=== PATIENT | female | born 1935 | race Caucasian/White ===

== ENCOUNTER → 2016-12-15 | Outpatient (CLI) | payer MEDICARE, OTHER | END | disposition home or self-care (01) | LOC: GMAL 15:06 | PROVIDERS: ATTEND Family Medicine | DX: N39.0 Urinary tract infection, site not specified (principal) ==

== ENCOUNTER → 2017-06-13 | Outpatient (CLI) | payer MEDICARE, OTHER | END | disposition home or self-care (01) | LOC: GMAL 10:13 | PROVIDERS: ATTEND Family Medicine | DX: D51.3 Other dietary vitamin B12 deficiency anemia (principal); R53.82 Chronic fatigue, unspecified; E55.9 Vitamin D deficiency, unspecified ==

== ENCOUNTER → 2017-08-02 | Outpatient (CLI) | payer MEDICARE, OTHER ==
--- NOTE | 2017-08-02 14:16 | US ---
EXAM DESCRIPTION: Carotid Duplex: Ultrasound. CLINICAL HISTORY: BRUIT COMPARISON: None. TECHNIQUE: Transcutaneous scanning utilizing 2-dimensional and Doppler modes to evaluate the bilateral carotid systems and vertebral arteries. Percentage of diameter of stenosis or no stenosis recorded will be based upon NASCET criteria. FINDINGS: Peak systolic/end diastolic (CM-Sec) CCA Right 67/0 Left 62/13. ICA Right proximal 69/18, distal 81/16. Left proximal 54/14, mid 52/14. Vertebral Right 35/6 Left 32/9. ECA (PS Only) Right 168 left 80. ICA/CCA peak systolic ratio: Right 1.2 Left 0.9 ICA/CCA end diastolic ratio: Right n/a Left 1.1 Vertebral arteries: antegrade flow. Comments Comments: Moderate amount of calcified plaque in the bilateral common carotid bulbs and proximal ICAs. Area stenosis in the right CCA bulb is 36%. Diameter stenosis is almost identical. Area stenosis in the proximal right ICA is 46%; diameter stenosis is 69%. Area stenosis in the mid left CCA is 39%; diameter stenosis 34%. Area stenosis in the left CCA bulb is 57%. Diameter stenosis is 71%. Spectral broadening in the left CCA bulb and ICA. Area stenosis in the proximal left ICA is 36%; diameter stenosis 39%. IMPRESSION: 1. Doppler evaluation of the bilateral carotid systems and vertebral arteries shows no hemodynamically significant stenoses. However, two-dimensional evaluation shows possible critical stenosis in the proximal right ICA and in the left CCA bulb. Consider CTA carotid and vertebral arteries due to this discordance. 2. Significant amount of plaque seen in the carotid arteries bilaterally. Bilateral vertebral arteries showed antegrade-cephalad flow. Electronically signed by: Naga Duncan MD 08/02/2017 2:15 PM CDT
== END | disposition home or self-care (01) ==
LOC: US 09:04
PROVIDERS: ATTEND Family Medicine
DX: R09.89 Other specified symptoms and signs involving the circulatory and respiratory systems (principal)

== ENCOUNTER → 2017-08-16 | Outpatient (CLI) | payer MEDICARE, OTHER ==
--- NOTE | 2017-08-16 17:03 | CT ---
EXAM DESCRIPTION: CTA Neck CLINICAL HISTORY: 81 years, Female, CAROTID STENOSIS COMPARISON: None TECHNIQUE: Rapid bolus administration of nonionicIV contrast was performed with thin-section axial scanning of the neck performed in a dynamic fashion. Reconstructed multiplanar and three dimensional MIP and/or VRT images were created on a separate dedicated workstation were reviewed along with the source axial images and stored in the patient's medical record. Stenoses were evaluated using the NASCET criteria. This exam was performed according to our departmental dose-optimization program, which includes automated exposure control, adjustment of the mA and/or kV according to patient size and/or use of iterative reconstruction technique. FINDINGS: Bolus enhanced examination demonstrates good vascular enhancement of the aorta and great vessels and carotid and vertebral systems. Extensive calcific plaque throughout the aorta and neck is evident with no evidence of great vessel stenosis at the origin from the aortic arch. A combination of focal calcific plaque and tortuosity at the origin of the large left vertebral artery creates an estimated 30-40% proximal left vertebral stenosis. Widely patent but smaller caliber nondominant right vertebral artery is noted without significant stenosis. Anterior plating of the vertical spine from C4 through C7 is evident. Moderate to metallic artifact from this cervical spine hardware slightly limits overall image quality. The innominate artery bifurcation is widely patent. Right common carotid artery is medially positioned adjacent to the right edge of the cervical plate with mild calcific plaque in the distal common carotid artery and more significant calcific plaque along the medial wall of the proximal right ICA. Luminal diameter stenosis is estimated at less than 50%. Internal carotid artery then deviates laterally and is widely patent to the intracranial level with extensive ringlike calcification in the right carotid siphon with patency of the anterior middle cerebral arteries. Left common carotid artery demonstrates calcific surface plaque medially proximal to the bifurcation and moderately extensive calcific plaque in the proximal ICA and modest proximal ICA stenosis estimated at approximately 40-50% is present and appears slightly more significant than the opposite right side. Modest stenosis at the origin of the external carotid artery is also present. Intracranially surface calcification through the carotid siphon is present with patency of the supraclinoid internal carotid artery in the middle and anterior cerebral vessels. IMPRESSION: 1. Extensive calcific atherosclerosis involving the aortic arch great vessels and both carotid systems. A hemodynamically significant stenosis of either carotid system is not identified. 2. There is estimated 40-50% stenosis at the origin of each internal carotid artery with slightly more extensive plaque on the left but a high grade or critical stenosis is not identified. Additional milder surface plaquing in each distal common carotid artery is noted. 3. Normal appearance of the origin of the great vessels and a mild stenosis at the origin of the dominant left vertebral artery estimated at less than 40%. 4. Modest bilateral external carotid stenoses at the origin of each vessel. 5. Prior fusion of the cervical spine and anterior plating from C4 through C7. Electronically signed by: Phil Malhotra MD 08/16/2017 5:01 PM CDT
== END | disposition home or self-care (01) ==
LOC: CT 08:30
PROVIDERS: ATTEND Family Medicine
DX: I65.23 Occlusion and stenosis of bilateral carotid arteries (principal)

== ENCOUNTER → 2017-09-12 | Outpatient (CLI) | payer MEDICARE, OTHER | END | disposition home or self-care (01) | LOC: GMAL 10:59 | PROVIDERS: ATTEND Family Medicine | DX: D53.9 Nutritional anemia, unspecified (principal); E55.9 Vitamin D deficiency, unspecified ==

== ENCOUNTER → 2018-03-08 | Outpatient (CLI) | payer MEDICARE, OTHER | LOC: GMAL 14:29 | PROVIDERS: ATTEND Family Medicine | DX: N39.0 Urinary tract infection, site not specified (principal) ==

== ENCOUNTER → 2018-06-18 | Outpatient (CLI) | payer MEDICARE, OTHER | LOC: GMAL 14:24 | PROVIDERS: ATTEND Family Medicine | DX: I50.89 Other heart failure (principal) ==

== ENCOUNTER → 2018-08-20 | Outpatient (CLI) | payer MEDICARE, OTHER | LOC: YCHH 09:45 | PROVIDERS: ATTEND Family Medicine | DX: E11.21 Type 2 diabetes mellitus with diabetic nephropathy (principal); D64.9 Anemia, unspecified; E78.5 Hyperlipidemia, unspecified; I10 Essential (primary) hypertension ==

== ENCOUNTER → 2018-10-05 | Outpatient (CLI) | payer MEDICARE, OTHER | LOC: YCHH 10:52 | PROVIDERS: ATTEND Family Medicine | DX: E11.21 Type 2 diabetes mellitus with diabetic nephropathy (principal); I10 Essential (primary) hypertension ==

== ENCOUNTER → 2019-01-17 | Outpatient (CLI) | payer MEDICARE, OTHER | LOC: YCHH 10:04 | PROVIDERS: ATTEND Family Medicine | DX: E53.8 Deficiency of other specified B group vitamins (principal); E55.9 Vitamin D deficiency, unspecified; E78.5 Hyperlipidemia, unspecified; E11.21 Type 2 diabetes mellitus with diabetic nephropathy; D64.9 Anemia, unspecified ==

== ENCOUNTER → 2019-02-11 | Outpatient (CLI) | payer MEDICARE, OTHER | LOC: GMAL 10:20 | PROVIDERS: ATTEND Family Medicine | DX: E11.21 Type 2 diabetes mellitus with diabetic nephropathy (principal); I10 Essential (primary) hypertension ==

== ENCOUNTER → 2019-04-01 | Outpatient (CLI) | payer MEDICARE, OTHER | LOC: YCHH 12:45 | PROVIDERS: ATTEND Family Medicine | DX: N39.0 Urinary tract infection, site not specified (principal) ==

== ENCOUNTER → 2019-05-13 | Outpatient (CLI) | payer MEDICARE, OTHER | LOC: YCHH 09:49 | PROVIDERS: ATTEND Family Medicine | DX: E11.21 Type 2 diabetes mellitus with diabetic nephropathy (principal); E78.5 Hyperlipidemia, unspecified ==

== ENCOUNTER → 2019-07-11 | Outpatient (CLI) | payer MEDICARE, OTHER | LOC: GMAL 13:10 | PROVIDERS: ATTEND Family Medicine | DX: N39.0 Urinary tract infection, site not specified (principal) ==

== ENCOUNTER → 2019-08-12 | Outpatient (CLI) | payer MEDICARE, OTHER | LOC: YCHH 15:07 | PROVIDERS: ATTEND Family Medicine | DX: N39.0 Urinary tract infection, site not specified (principal) ==

== ENCOUNTER → 2019-09-23 | Outpatient (CLI) | payer MEDICARE, OTHER | LOC: YCHH 09:22 | PROVIDERS: ATTEND Family Medicine | DX: D64.9 Anemia, unspecified (principal); N18.9 Chronic kidney disease, unspecified; E11.21 Type 2 diabetes mellitus with diabetic nephropathy; E78.5 Hyperlipidemia, unspecified ==

== ENCOUNTER → 2020-03-25 | Outpatient (CLI) | payer MEDICARE, OTHER | LOC: YCHH 09:39 | PROVIDERS: ATTEND Family Medicine | DX: N18.9 Chronic kidney disease, unspecified (principal); E78.5 Hyperlipidemia, unspecified; D64.9 Anemia, unspecified; E11.9 Type 2 diabetes mellitus without complications ==

== ENCOUNTER 2020-04-18 18:27 | Emergency (ER) | payer MEDICARE, OTHER ==
[2020-04-18 18:42] VITALS: TEMP 98
--- NOTE | 2020-04-18 18:44 | ED.PDOC ---
History of Present Illness - General Chief Complaint: Trauma Stated Complaint: s/p fall,left hip pain Time Seen by Provider: 04/18/20 18:33 Source: patient, RN notes reviewed, Vital Signs reviewed, EMS notes reviewed Additional Information: This is an 84-year-old female, with no medical, no blood thinners patient presents to the ER with left hip pain after patient slipped from her chair while eating dinner, and hit her left hip. Patient was able to ambulate after the fall denies LOC denies blood thinner denies any head trauma at the moment has no complaints - History of Present Illness Occurred: just prior to arrival Severity: mild Pain Location: none Improving Factors: nothing Worsening Factors: nothing Loss of Consciousness: no loss of consciousness Associated Symptoms (Fall): denies symptoms Allergies/Adverse Reactions: Allergies Nitrofurantoin [From Macrodantin] Allergy (Verified 03/14/19 11:40) Home Medications: Ambulatory Orders Coenzyme Q10 (Ubidecarenone) [Co Q-10] 200 mg PO DAILY 05/28/18 Insulin Glargine [Lantus Solostar] 50 unit SC 1800 05/28/18 Insulin Lispro [Humalog] See Protocol SUBCU 1800 05/28/18 Multiple Vitamins W/ Minerals [Centrum Silver] 1 ea PO DAILY 05/28/18 Simvastatin 40 mg PO BEDTIME 05/28/18 Aspirin [Aspirin Adult Low Dose] 81 mg PO DAILY 03/14/19 Escitalopram Oxalate [Lexapro] 5 mg PO BEDTIME 03/14/19 Insulin Lispro [Humalog] 8 units SUBCU AC 03/14/19 Memantine HCl-Donepezil HCl [Namzaric 28-10 mg] 10 mg PO PRN 03/14/19 Carvedilol [Coreg] 12.5 mg PO BID #20 tab 03/15/19 Ciprofloxacin [Cipro] 500 mg PO BID #14 tab 03/15/19 Losartan Potassium [Cozaar] 100 mg PO DAILY #10 tab 03/15/19 Review of Systems - Review of Systems Constitutional: States: no symptoms reported EENTM: States: no symptoms reported Respiratory: States: no symptoms reported Cardiology: States: no symptoms reported Gastrointestinal/Abdominal: States: no symptoms reported Genitourinary: States: no symptoms reported Skin: States: no symptoms reported Neurological: States: no symptoms reported Endocrine: States: no symptoms reported Hematologic/Lymphatic: States: no symptoms reported Past Medical History (General) - Patient Medical History Hx Seizures: No Hx Stroke: No Hx Asthma: No Hx of COPD: No Hx Congestive Heart Failure: No Hx Pacemaker: No Hx Hypertension: Yes Hx Diabetes: Yes Hx Cancer: No Hx Hepatitis C: No Hx MRSA: No Surgical History: Hysterectomy - Vaccination History Hx Tetanus, Diphtheria Vaccination: Yes Hx Influenza Vaccination: Yes Hx Pneumococcal Vaccination: Yes - Social History Hx Tobacco Use: No Hx Alcohol Use: No Hx Substance Use: No Hx Substance Use Treatment: No Hx Depression: No Hx Physical Abuse: No Hx Emotional Abuse: No - Female History Patient : No Family Medical History - Family History Mother Living Status: Physical Exam - Physical Exam General Appearance: Alert, Well Developed, Well Groomed, Well Hydrated, Well Nourished Head Injury: no evidence of injury Eye Exam: bilateral normal ENT Exam: hearing grossly normal Neck Exam: non-tender Cardiovascular/Respiratory: regular rate, rhythm, no M/R/G, normal peripheral pulses, no JVD Gastrointestinal/Abdominal: normal bowel sounds, non tender, soft, no organomegaly, no pulsatile mass Back Exam: normal inspection, no CVA tenderness, no vertebral tenderness Extremity Exam: no evidence of injury, normal range of motion, non-tender, no pedal edema Neurologic: manager golf II-XII nml as tested, no motor/sensory deficits, alert, normal mood/affect, oriented x 3 Skin Exam: normal color - [place] Coma Score Best Eye Response ([place]iz): (4) open spontaneously Best Verbal Response ([place]): (5) oriented Best Motor Response ([place]): (6) obeys commands Progress - Progress Progress: Trigger finger, presents to the ER after she fell from a chair while having the night she slipped and fell she usually walks with assistance but she was try to walk on her own, did not hit her head initially was complained of left hip pain but when EMS arrived at the scene she was asymptomatic, patient physically did not have any clinical fractures, [place] Coma Scale 15 patient not on blood thinners and no evidence of shortening or adduction on the right lower extremity X-ray did not show evidence of intertrochanteric fracture no femoral neck fracture, and no inferior, or superior pubic rami fracture she will be sent home with assurance 04/18/20 18:59 Departure - Departure Clinical Impression: Hip sprain Qualifiers: Encounter type: initial encounter Laterality: left Qualified Code(s): S73.102A - Unspecified sprain of left hip, initial encounter Fall Qualifiers: Encounter type: initial encounter Qualified Code(s): W19.XXXA - Unspecified fall, initial encounter Disposition: Discharge to Home or Self Care Departure Forms: ED Discharge - Pt. Copy, Patient Portal Self Enrollment Instructions: DI for Trauma, Hip Pain Referrals: Davide Guerrero III, MD [Primary Care Provider] - 1-2 Weeks Home Medications: Ambulatory Orders Coenzyme Q10 (Ubidecarenone) [Co Q-10] 200 mg PO DAILY 05/28/18 Insulin Glargine [Lantus Solostar] 50 unit SC 1800 05/28/18 Insulin Lispro [Humalog] See Protocol SUBCU 1800 05/28/18 Multiple Vitamins W/ Minerals [Centrum Silver] 1 ea PO DAILY 05/28/18 Simvastatin 40 mg PO BEDTIME 05/28/18 Aspirin [Aspirin Adult Low Dose] 81 mg PO DAILY 03/14/19 Escitalopram Oxalate [Lexapro] 5 mg PO BEDTIME 03/14/19 Insulin Lispro [Humalog] 8 units SUBCU AC 03/14/19 Memantine HCl-Donepezil HCl [Namzaric 28-10 mg] 10 mg PO PRN 03/14/19 Carvedilol [Coreg] 12.5 mg PO BID #20 tab 03/15/19 Ciprofloxacin [Cipro] 500 mg PO BID #14 tab 03/15/19 Losartan Potassium [Cozaar] 100 mg PO DAILY #10 tab 03/15/19 Additional Instructions: You may use ice packs and or warm compresses if pain
--- NOTE | 2020-04-18 18:59 | RAD ---
EXAM DESCRIPTION: XRAY Hip,Left 2 Views; 2 views CLINICAL HISTORY: 84 years Female, fall COMPARISON: None. FINDINGS: Negative for acute fracture, dislocation, or radiopaque foreign body. Degenerative change present. IMPRESSION: No acute findings. Electronically signed by: Deonte Lewis MD 04/18/2020 6:58 PM CDT
[2020-04-18 19:13] VITALS: BP 131/55; O2SAT 96
== END 2020-04-18 19:12 | disposition home or self-care (01) ==
LOC: ER 18:27
DX: S73.102A Unspecified sprain of left hip, initial encounter (principal); W08.XXXA Fall from other furniture, initial encounter; Y92.9 Unspecified place or not applicable

== ENCOUNTER → 2020-05-21 | Outpatient (CLI) | payer MEDICARE, OTHER | LOC: YCHH 15:55 | PROVIDERS: ATTEND Family Medicine | DX: N18.9 Chronic kidney disease, unspecified (principal); E11.9 Type 2 diabetes mellitus without complications ==

== ENCOUNTER 2020-07-19 09:58 | Emergency (ER) | payer MEDICARE, OTHER ==
--- NOTE | 2020-07-19 10:19 | ED.PDOC ---
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 Started 4 days ago. Dyspnea with exertion. Also more leg swelling than normal. Patient denies chest pain, dizziness or current shortness of breath. no recent hospitalization, but care take states she does not move a lot. Worsening Factors: rest Allergies/Adverse Reactions: Allergies Nitrofurantoin [From Macrodantin] Allergy (Verified 03/14/19 11:40) Home Medications: Ambulatory Orders Coenzyme Q10 (Ubidecarenone) [Co Q-10] 200 mg PO DAILY 05/28/18 Insulin Glargine [Lantus Solostar] 85 unit SC 1800 05/28/18 Insulin Lispro [Humalog] See Protocol SUBCU 1800 05/28/18 Multiple Vitamins W/ Minerals [Centrum Silver] 1 ea PO DAILY 05/28/18 Simvastatin 40 mg PO BEDTIME 05/28/18 Aspirin [Aspirin Adult Low Dose] 81 mg PO DAILY 03/14/19 Escitalopram Oxalate [Lexapro] 5 mg PO BEDTIME 03/14/19 Insulin Lispro [Humalog] 8 units SUBCU AC 03/14/19 Memantine HCl-Donepezil HCl [Namzaric 28-10 mg] 10 mg PO QPM 03/14/19 Carvedilol [Coreg] 12.5 mg PO BID #20 tab 03/15/19 Losartan Potassium [Cozaar] 100 mg PO DAILY #10 tab 03/15/19 Clonazepam 0.5 mg PO Q4H PRN 07/19/20 Triamterene & Hydrochlorothiaz [Triamterene/Hydrochloroth 37.5-25 mg] 1 tab PO MOWEFR 07/19/20 Review of Systems - Review of Systems Constitutional: Denies: chills, fever EENTM: Denies: tearing, nose congestion, mouth swelling Respiratory: States: short of breath. Denies: cough, orthopnea, stridor Cardiology: Denies: chest pain, palpitations, syncope Gastrointestinal/Abdominal: Denies: abdominal pain, diarrhea, nausea, vomiting Genitourinary: Denies: frequency, hematuria Musculoskeletal: Denies: joint pain, muscle stiffness Skin: Denies: rash Neurological: States: numbness - chronic peripheral neuropathy . Denies: headache, seizure, weakness Endocrine: Denies: unexplained weight gain, unexplained weight loss Hematologic/Lymphatic: Denies: blood clots, easy bleeding, easy bruising Unable to Obtain Due To: dementia Past Medical History (General) - Patient Medical History Hx Seizures: No Hx Stroke: No Hx Asthma: No Hx of COPD: No Hx Congestive Heart Failure: No Hx Pacemaker: No Hx Hypertension: Yes Hx Diabetes: Yes Hx Cancer: No Hx Hepatitis C: No Hx MRSA: No - Vaccination History Hx Tetanus, Diphtheria Vaccination: Yes Hx Influenza Vaccination: Yes Hx Pneumococcal Vaccination: Yes - Social History Hx Tobacco Use: No Hx Alcohol Use: No Hx Substance Use: No Hx Substance Use Treatment: No Hx Depression: No Hx Physical Abuse: No Hx Emotional Abuse: No - Female History Patient : No Family Medical History - Family History Mother Living Status: Physical Exam - Physical Exam General Appearance: Alert, Comfortable, No apparent distress, Well Developed, Well Groomed, Well Hydrated, Well Nourished Eyes, Ears, Nose, Throat Exam: PERRL/EOMI, normal ENT inspection, TMs normal Neck: non-tender, full range of motion, supple, normal inspection Respiratory: chest non-tender, lungs clear, normal breath sounds, no respiratory distress, no accessory muscle use, other - diminshed at bases Cardiovascular/Chest: normal peripheral pulses, no gallop, no JVD, no murmur, bradycardia, other - 3+ pitting edema Right LE > left Peripheral Pulses: radial,right: 2+, radial,left: 2+, dorsalis pedis,right: 2+, dorsalis pedis,left: 2+ Gastrointestinal/Abdominal: normal bowel sounds, non tender, soft, no organomegaly Rectal Exam: deferred Extremity: normal range of motion, non-tender, no calf tenderness Neurologic: no motor/sensory deficits, alert, normal mood/affect, other - oriented to self Skin Exam: normal color, warm/dry Progress - Progress Progress: 07/19/20 10:20 partial ddx: CHF, PE/DVT, CAD, pneumonia/covid. 07/19/20 12:41 The data reviewed when caring for this patient included: nurse notes, prior records, etc. The history and assessments from nurses notes were reviewed and considered, and the patient's home medication list was also reviewed and considered. My assessment and the results of testing completed here in the ED were discussed with the patient/family. Explained to that we don't have v/q scan or US thus will need to be transferred. Patient crcl 31, thus cannot get cta. All questions were answered, and they express understanding of my assessment and the plan. vss, patient transferred to [facility] in stable condition.Elisa Goldstein DO #[id number] 07/19/20 10:15 EKG STAT 07/19/20 11:29 URINALYSIS Stat Laboratory Results WBC 10.3 K/mm3 (4.8-10.8) 07/19/20 10:35 RBC 4.11 M/mm3 (4.20-5.40) L 07/19/20 10:35 Hgb 12.3 gm/dL (12.0-16.0) 07/19/20 10:35 Hct 36.3 % (36.0-47.0) 07/19/20 10:35 MCV 88.4 fl (81.0-99.0) 07/19/20 10:35 MCH 29.9 pg (27.0-31.0) 07/19/20 10:35 MCHC 33.9 g/dL (33.0-37.0) 07/19/20 10:35 RDW 14.1 % (11.5-14.5) 07/19/20 10:35 Plt Count 198 K/mm3 (130-400) 07/19/20 10:35 MPV 9.6 fl (7.40-10.4) 07/19/20 10:35 Absolute Neuts (auto) 6.70 K/uL (1.8-6.8) 07/19/20 10:35 Absolute Lymphs (auto) 2.30 K/uL (1.0-3.4) 07/19/20 10:35 Absolute Monos (auto) 0.50 K/uL (0.2-0.8) 07/19/20 10:35 Absolute Eos (auto) 0.60 K/uL (0.0-0.4) H 07/19/20 10:35 Absolute Basos (auto) 0.10 K/uL (0.0-0.1) 07/19/20 10:35 Neutrophils % 65.6 % (42.0-78.0) 07/19/20 10:35 Lymphocytes % 22.5 % (20.0-50.0) 07/19/20 10:35 Monocytes % 5.0 % (2.0-9.0) 07/19/20 10:35 Eosinophils % 6.0 % (1.0-5.0) H 07/19/20 10:35 Basophils % 0.9 % (0.0-2.0) 07/19/20 10:35 PT 10.2 SECONDS (9.0-10.9) 07/19/20 10:35 INR 1.03 (0.9-1.15) 07/19/20 10:35 PTT (SP) 22.8 SECONDS (21.8-31.6) 07/19/20 10:35 D-Dimer, Quantitative 694.0 ng/ml (131-400) H* 07/19/20 10:35 Sodium 141 mmol/L (135-145) 07/19/20 10:35 Potassium 4.1 mmol/L (3.6-5.0) 07/19/20 10:35 Chloride 105 mmol/L (101-111) 07/19/20 10:35 Carbon Dioxide 26 mmol/L (21-31) 07/19/20 10:35 Anion Gap 14.1 (12-18) 07/19/20 10:35 BUN 43 mg/dL (7-18) H 07/19/20 10:35 Creatinine 1.61 mg/dL (0.6-1.3) H 07/19/20 10:35 BUN/Creatinine Ratio 26.7 (10-20) H 07/19/20 10:35 Random Glucose 138 mg/dL (70-105) H 07/19/20 10:35 Serum Osmolality 294.3 mOsm/L (275-295) 07/19/20 10:35 Calcium 9.1 mg/dL (8.4-10.2) 07/19/20 10:35 Total Bilirubin 0.5 mg/dL (0.2-1.0) 07/19/20 10:35 AST 26 IU/L (10-42) 07/19/20 10:35 ALT 28 IU/L (10-60) 07/19/20 10:35 Alkaline Phosphatase 59 IU/L (42-121) 07/19/20 10:35 Troponin I < 0.02 ng/mL (0.01-0.05) 07/19/20 10:35 B-Natriuretic Peptide 240.0 pg/ml (0-100) H* 07/19/20 10:35 Serum Total Protein 7.4 gm/dL (6.4-8.2) 07/19/20 10:35 Albumin 3.4 g/dl (3.2-5.5) 07/19/20 10:35 Globulin 4.0 gm/dL (2.3-3.5) H 07/19/20 10:35 Albumin/Globulin Ratio 0.9 (1.1-1.9) L 07/19/20 10:35 - EKG/XRAY/CT EKG: Sinus, Unchanged from Comments: HR 51, robret, PVC, LAD, Poor r wave progression XRAY: chest - no acute cardiopulmonary abrnomalities. Departure - Departure Clinical Impression: Edema Qualifiers: Edema type: unspecified Qualified Code(s): R60.9 - Edema, unspecified Dyspnea Qualifiers: Dyspnea type: dyspnea on exertion Qualified Code(s): R06.00 - Dyspnea, unspecified Time of Disposition: 12:44 Disposition: Transfer to Hospital Condition: Fair Referrals: Davide Guerrero III, MD [Primary Care Provider] - 1-2 Days Home Medications: Ambulatory Orders Coenzyme Q10 (Ubidecarenone) [Co Q-10] 200 mg PO DAILY 05/28/18 Insulin Glargine [Lantus Solostar] 85 unit SC 1800 05/28/18 Insulin Lispro [Humalog] See Protocol SUBCU 1800 05/28/18 Multiple Vitamins W/ Minerals [Centrum Silver] 1 ea PO DAILY 05/28/18 Simvastatin 40 mg PO BEDTIME 05/28/18 Aspirin [Aspirin Adult Low Dose] 81 mg PO DAILY 03/14/19 Escitalopram Oxalate [Lexapro] 5 mg PO BEDTIME 03/14/19 Insulin Lispro [Humalog] 8 units SUBCU AC 03/14/19 Memantine HCl-Donepezil HCl [Namzaric 28-10 mg] 10 mg PO QPM 03/14/19 Carvedilol [Coreg] 12.5 mg PO BID #20 tab 03/15/19 Losartan Potassium [Cozaar] 100 mg PO DAILY #10 tab 03/15/19 Clonazepam 0.5 mg PO Q4H PRN 07/19/20 Triamterene & Hydrochlorothiaz [Triamterene/Hydrochloroth 37.5-25 mg] 1 tab PO MOWEFR 07/19/20 Transfer to Outside Facility - Transfer Information Decision to Transfer Date: 07/19/20 Decision to Transfer Time: 12:00 Reason for Transfer: testing not available Accepting Facility: [facility]
--- NOTE | 2020-07-19 10:36 | RAD ---
EXAM: X-RAY, Chest (1 View) HISTORY: short of breath. COMPARISON: Chest x-ray from 03/14/2019. TECHNIQUE: AP view of the chest. FINDINGS: Lungs: The lungs are clear. Pleural space: No pneumothorax or pleural effusion is present. Heart: The heart is normal in size. Mildly elevated right hemidiaphragm, similar to the previous exam. Bones: No acute bone abnormality. IMPRESSION: No acute cardiopulmonary finding. Electronically signed by: Trey Day MD 07/19/2020 10:35 AM CDT
[2020-07-19 12:54] VITALS: O2SAT 98
[2020-07-19 13:28] VITALS: BP 149/58; TEMP 96.2
== END 2020-07-19 13:12 | disposition short-term general hospital (02) ==
LOC: ER 09:58
DX: R06.02 Shortness of breath (principal); R60.0 Localized edema; F03.90 Unspecified dementia, unspecified severity, without behavioral disturbance, psychotic disturbance, mood disturbance, and anxiety; R00.1 Bradycardia, unspecified; I49.3 Ventricular premature depolarization; E11.42 Type 2 diabetes mellitus with diabetic polyneuropathy; I10 Essential (primary) hypertension; Z79.4 Long term (current) use of insulin; Z79.82 Long term (current) use of aspirin; Z79.899 Other long term (current) drug therapy; Z88.8 Allergy status to other drugs, medicaments and biological substances

== ENCOUNTER → 2020-07-31 | Outpatient (CLI) | payer MEDICARE, OTHER | LOC: YCHH 09:32 | PROVIDERS: ATTEND Family Medicine | DX: I12.9 Hypertensive chronic kidney disease with stage 1 through stage 4 chronic kidney disease, or unspecified chronic kidney disease (principal); N18.30 Chronic kidney disease, stage 3 unspecified; D64.9 Anemia, unspecified ==

== ENCOUNTER → 2020-08-11 | Outpatient (CLI) | payer MEDICARE, OTHER | LOC: YCHH 10:27 | PROVIDERS: ATTEND Family Medicine | DX: E11.22 Type 2 diabetes mellitus with diabetic chronic kidney disease (principal); I50.9 Heart failure, unspecified; I12.9 Hypertensive chronic kidney disease with stage 1 through stage 4 chronic kidney disease, or unspecified chronic kidney disease; D63.1 Anemia in chronic kidney disease ==

== ENCOUNTER → 2020-08-13 | Outpatient (CLI) | payer MEDICARE, OTHER | LOC: YCHH 10:11 | PROVIDERS: ATTEND Family Medicine Sports Medicine | DX: N39.0 Urinary tract infection, site not specified (principal) ==

== ENCOUNTER → 2020-09-02 | Outpatient (CLI) | payer MEDICARE, OTHER | LOC: YCHH 10:28 | PROVIDERS: ATTEND Family Medicine | DX: D64.9 Anemia, unspecified (principal); N18.9 Chronic kidney disease, unspecified; E78.5 Hyperlipidemia, unspecified; E03.9 Hypothyroidism, unspecified; E53.8 Deficiency of other specified B group vitamins; E55.9 Vitamin D deficiency, unspecified; E11.9 Type 2 diabetes mellitus without complications ==

== ENCOUNTER 2020-10-08 14:45 | Emergency (ER) | payer MEDICARE, OTHER ==
[2020-10-08 15:07] VITALS: O2SAT 96
--- NOTE | 2020-10-08 16:25 | RAD ---
EXAM DESCRIPTION: Ankle,Right 3 Views CLINICAL HISTORY: 84 years Female, fall COMPARISON: None. FINDINGS: Three views of the right ankle were obtained. Obliquely oriented, slightly displaced distal right fibular diaphyseal fracture. Nondisplaced medial malleolar fracture. The tibiotalar joint space and talar dome are well-maintained. Degenerative changes in the midfoot, large plantar calcaneal enthesophyte. No posterior malleolar fracture. IMPRESSION: Minimally displaced distal right fibular and medial malleolar fractures. Electronically signed by: Adiel Bonilla MD 10/08/2020 4:[address] [facility]
--- NOTE | 2020-10-08 16:27 | RAD ---
EXAM DESCRIPTION: Knee,Right Complete CLINICAL HISTORY: 84 years Female, fall COMPARISON: None. FINDINGS: Three views of the right knee show a right knee joint effusion without acute fracture or malalignment. Vascular calcifications. Mild degenerative changes in the medial and patellofemoral compartments. IMPRESSION: Right knee joint effusion without apparent fracture or malalignment. If clinical suspicion of fracture persists, CT or MRI should be considered. Vascular calcifications and degenerative changes. Electronically signed by: Adiel Bonilla MD 10/08/2020 4:25 PM [facility]
[2020-10-08] MEDS ORDERED: ACETAMINOPHEN W/COD #3 TAB 1 EA TAB PO ONE (16:28)
[2020-10-08] MEDS ORDERED: ONDANSETRON ODT 8 MG TAB SL ONE (16:29)
--- NOTE | 2020-10-08 16:35 | ED.PDOC ---
History of Present Illness - General Chief Complaint: Trauma Stated Complaint: s/p fall - right foot pain Time Seen by Provider: 10/08/20 16:33 Source: patient, RN notes reviewed, Vital Signs reviewed, other - home health aid Exam Limitations: no limitations - History of Present Illness Initial Comments: All better patient is an 84-year-old white female who is status post fall after tripping over a table leg. Patient complains of right foot ankle and knee pain. Pain is throbbing in nature. Is worse with ambulation or palpation. It is better when she rests and elevates it. The pain is constant. It is moderate in intensity. There is no radiation of the pain. Occurred: this morning Severity: moderate Pain Location: lower extremity Method of Injury: direct blow, fall Improving Factors: immobilization, rest Worsening Factors: movement Loss of Consciousness: no loss of consciousness Associated Symptoms (Fall): denies symptoms Allergies/Adverse Reactions: Allergies Nitrofurantoin [From Macrodantin] Allergy (Verified 10/08/20 15:22) Home Medications: Ambulatory Orders Coenzyme Q10 (Ubidecarenone) [Co Q-10] 200 mg PO DAILY 05/28/18 Insulin Glargine [Lantus Solostar] 85 unit SC 1800 05/28/18 Insulin Lispro [Humalog] See Protocol SUBCU 1800 05/28/18 Multiple Vitamins W/ Minerals [Centrum Silver] 1 ea PO DAILY 05/28/18 Simvastatin 40 mg PO BEDTIME 05/28/18 Aspirin [Aspirin Adult Low Dose] 81 mg PO DAILY 03/14/19 Escitalopram Oxalate [Lexapro] 5 mg PO BEDTIME 03/14/19 Insulin Lispro [Humalog] 8 units SUBCU AC 03/14/19 Memantine HCl-Donepezil HCl [Namzaric 28-10 mg] 10 mg PO QPM 03/14/19 Carvedilol [Coreg] 12.5 mg PO BID #20 tab 03/15/19 Losartan Potassium [Cozaar] 100 mg PO DAILY #10 tab 03/15/19 Clonazepam 0.5 mg PO Q4H PRN 07/19/20 Triamterene & Hydrochlorothiaz [Triamterene/Hydrochloroth 37.5-25 mg] 1 tab PO MOWEFR 07/19/20 Acetaminophen W/ Codeine [Tylenol W/ CODEINE #3] 1 tablet PO Q6H #16 ea 10/08/20 Review of Systems - Review of Systems Constitutional: States: no symptoms reported, see HPI. Denies: chills, fever, malaise, weakness EENTM: States: no symptoms reported. Denies: eye pain, blurred vision, double vision Respiratory: States: no symptoms reported. Denies: cough, short of breath, stridor, wheezing Cardiology: States: no symptoms reported. Denies: chest pain, palpitations, syncope Gastrointestinal/Abdominal: States: no symptoms reported. Denies: abdominal pain, diarrhea, nausea, vomiting Genitourinary: Denies: no symptoms reported, dysuria, frequency Musculoskeletal: States: see HPI, joint swelling - right foot/ankle/knee. Denies: back pain Skin: States: no symptoms reported. Denies: change in color, rash Neurological: States: no symptoms reported. Denies: headache, tingling, tremors, weakness Endocrine: States: no symptoms reported. Denies: increased hunger, increased thirst, increased urine Hematologic/Lymphatic: States: no symptoms reported. Denies: blood clots, easy bleeding All other Systems: No Change from Baseline Past Medical History (General) - Patient Medical History Hx Seizures: No Hx Stroke: No Hx Asthma: No Hx of COPD: No Hx Congestive Heart Failure: No Hx Pacemaker: No Hx Hypertension: Yes Hx Diabetes: Yes Hx Cancer: No Hx Hepatitis C: No Hx MRSA: No Surgical History: no surgical history - Vaccination History Hx Tetanus, Diphtheria Vaccination: Yes Hx Influenza Vaccination: Yes Hx Pneumococcal Vaccination: Yes - Social History Hx Tobacco Use: No Hx Alcohol Use: No Hx Substance Use: No Hx Substance Use Treatment: No Hx Depression: No Hx Physical Abuse: No Hx Emotional Abuse: No - Activities of Daily Living Hospice Agency (if applicable):: None - Female History Patient is a Female of Child Bearing Age (10 -59 yrs old): No Patient : No Family Medical History - Family History Mother Living Status: Physical Exam - Physical Exam General Appearance: Alert, Anxious, Obvious distress, Well Developed, Well Groomed, Well Hydrated, Well Nourished Head Injury: no evidence of injury Eye Exam: bilateral normal ENT Exam: hearing grossly normal, no dental injury Neck Exam: non-tender, full range of motion, normal alignment Cardiovascular/Respiratory: no M/R/G, normal peripheral pulses, no JVD, normal breath sounds, no respiratory distress, bradycardia Gastrointestinal/Abdominal: normal bowel sounds, non tender, soft Back Exam: normal inspection, no CVA tenderness, no vertebral tenderness Extremity Exam: bony-point tenderness - right foot/ankle/knee, joint effusion - right knee, pedal edema, tenderness - right foot/ankle/knee, unable to bear weight Neurologic: sample builder II-XII nml as tested, no motor/sensory deficits, alert, normal mood/affect, oriented x 3 Skin Exam: normal color, warm/dry - Sanford Coma Score Best Eye Response (Sanford): (4) open spontaneously Best Verbal Response ([place]iz): (5) oriented Best Motor Response (Sanford): (6) obeys commands Progress - Progress Progress: Differential diagnosis: Fall, knee contusion, ankle fracture, foot fracture among others. 10/08/20 17:19 Patient with a medial malleoli fracture and a lateral distal fibula fracture. Patient was placed in splint without difficulty. Patient tolerated the procedure well. Discussed this patient's care with her PCP, Dr. Guerrero and he w ill see her in the morning at 9:45 AM. I discussed this with the patient and her caregiver and voiced understanding and agreement with the plan of care.Will also refer her to Dr. Parker, orthopedics. Will discharge home with a prescription for Tylenol with codeine. - Results/Orders Results/Orders: EXAM DESCRIPTION: Ankle,Right 3 Views CLINICAL HISTORY: 84 years Female, fall COMPARISON: None. FINDINGS: Three views of the right ankle were obtained. Obliquely oriented, slightly displaced distal right fibular diaphyseal fracture. Nondisplaced medial malleolar fracture. The tibiotalar joint space and talar dome are well-maintained. Degenerative changes in the midfoot, large plantar calcaneal enthesophyte. No posterior malleolar fracture. IMPRESSION: Minimally displaced distal right fibular and medial malleolar fractures. Electronically signed by: Adiel Bonilla MD 10/08/2020 4:24 PM GENERAL DUTY NURSE EXAM DESCRIPTION: Knee,Right Complete CLINICAL HISTORY: 84 years Female, fall COMPARISON: None. FINDINGS: Three views of the right knee show a right knee joint effusion without acute fracture or malalignment. Vascular calcifications. Mild degenerative changes in the medial and patellofemoral compartments. IMPRESSION: Right knee joint effusion without apparent fracture or malalignment. If clinical suspicion of fracture persists, CT or MRI should be considered. Vascular calcifications and degenerative changes. Electronically signed by: Adiel Bonilla MD 10/08/2020 4:25 PM GENERAL DUTY NURSE EXAM: XR Right Foot Complete, 3 or More Views CLINICAL HISTORY: The patient is 84 years old and is Female; Fall with right foot pain TECHNIQUE: Three views of the right foot. COMPARISON: No relevant prior studies available. FINDINGS: Bones/joints: No acute fracture or dislocation visualized. Previous surgery at the first MTP joint. Diffuse bone demineralization. Degenerative changes in the mid foot and ankle. Calcaneus spur. Impression chronic osseous findings as abo ve. Soft tissues: Soft tissue swelling. No radiopaque foreign body. IMPRESSION: Soft tissue swelling. Electronically signed by: Ruthie Harvey MD 10/08/2020 5:14 PM GENERAL DUTY NURSE EKG performed 08 October 2020 at 1453 hrs.: Sinus bradycardia 51 bpm, left axis deviation, anterior septal infarct, age undetermined, abnormal EKG. No comparison EKG available at this time. Vital Signs 10/08/20 10/08/20 14:45 14:58 Temperature 98.4 F Pulse Rate [ 56 L 56 L pulse ox] Respiratory 18 18 Rate Blood Pressure 182/68 [Left Arm] O2 Sat by Pulse 96 Oximetry Departure - Departure Clinical Impression: Bimalleolar avulsion fracture of right ankle Fall Qualifiers: Encounter type: initial encounter Qualified Code(s): W19.XXXA - Unspecified fall, initial encounter Contusion, knee and lower leg Qualifiers: Encounter type: initial encounter Laterality: right Qualified Code(s): S80.01XA - Contusion of right knee, initial encounter; S80.11XA - Contusion of right lower leg, initial encounter Time of Disposition: 17:36 Disposition: Discharge to Home or Self Care Condition: Good Departure Forms: ED Discharge - Pt. Copy, Patient Portal Self Enrollment Instructions: DI for Trauma, Ankle Fracture (DC), Cast Care, Preventing Falls Diet: resume usual diet Activity: ambulate only with walker, no pushing/pulling with affected limb Referrals: Davide Guerrero III, MD [Primary Care Provider] - 10/09/20 9:45 am Joni Parker MD [Active Staff] - 1-5 Days Prescriptions: Acetaminophen W/ Codeine [Tylenol W/ CODEINE #3] 1 tablet PO Q6H #16 ea Home Medications: Ambulatory Orders Coenzyme Q10 (Ubidecarenone) [Co Q-10] 200 mg PO DAILY 05/28/18 Insulin Glargine [Lantus Solostar] 85 unit SC 1800 05/28/18 Insulin Lispro [Humalog] See Protocol SUBCU 1800 05/28/18 Multiple Vitamins W/ Minerals [Centrum Silver] 1 ea PO DAILY 05/28/18 Simvastatin 40 mg PO BEDTIME 05/28/18 Aspirin [Aspirin Adult Low Dose] 81 mg PO DAILY 03/14/19 Escitalopram Oxalate [Lexapro] 5 mg PO BEDTIME 03/14/19 Insulin Lispro [Humalog] 8 units SUBCU AC 03/14/19 Memantine HCl-Donepezil HCl [Namzaric 28-10 mg] 10 mg PO QPM 03/14/19 Carvedilol [Coreg] 12.5 mg PO BID #20 tab 03/15/19 Losartan Potassium [Cozaar] 100 mg PO DAILY #10 tab 03/15/19 Clonazepam 0.5 mg PO Q4H PRN 07/19/20 Triamterene & Hydrochlorothiaz [Triamterene/Hydrochloroth 37.5-25 mg] 1 tab PO MOWEFR 07/19/20 Acetaminophen W/ Codeine [Tylenol W/ CODEINE #3] 1 tablet PO Q6H #16 ea 10/08/20
--- NOTE | 2020-10-08 17:15 | RAD ---
EXAM: XR Right Foot Complete, 3 or More Views CLINICAL HISTORY: The patient is 84 years old and is Female; Fall with right foot pain TECHNIQUE: Three views of the right foot. COMPARISON: No relevant prior studies available. FINDINGS: Bones/joints: No acute fracture or dislocation visualized. Previous surgery at the first MTP joint. Diffuse bone demineralization. Degenerative changes in the mid foot and ankle. Calcaneus spur. Impression chronic osseous findings as above. Soft tissues: Soft tissue swelling. No radiopaque foreign body. IMPRESSION: Soft tissue swelling. Electronically signed by: Ruthie Harvey MD 10/08/2020 5:14 PM [facility]
[2020-10-08 19:08] VITALS: BP 146/69; TEMP 97.9
== END 2020-10-08 18:00 | disposition home or self-care (01) ==
LOC: ER 14:45
DX: S82.841A Displaced bimalleolar fracture of right lower leg, initial encounter for closed fracture (principal); S80.11XA Contusion of right lower leg, initial encounter; I10 Essential (primary) hypertension; E11.9 Type 2 diabetes mellitus without complications; R00.1 Bradycardia, unspecified; Z79.82 Long term (current) use of aspirin; Z79.899 Other long term (current) drug therapy; Z79.4 Long term (current) use of insulin; Z88.8 Allergy status to other drugs, medicaments and biological substances; W01.0XXA Fall on same level from slipping, tripping and stumbling without subsequent striking against object, initial encounter; Y92.9 Unspecified place or not applicable

== ENCOUNTER → 2020-11-16 | Outpatient (CLI) | payer MEDICARE, OTHER ==
--- NOTE | 2020-11-16 16:25 | RAD ---
EXAM DESCRIPTION: Ankle,Right 3 Views CLINICAL HISTORY: PAIN IN RIGHT ANKLE AND JOINTS OF FOOT COMPARISON: October 08, 2020 IMPRESSION: 3 views of the right ankle again demonstrates mildly displaced spiral fracture of the right distal fibula and mildly fracture of the medial malleolus with continued indistinctness of the fracture margins and mild periosteal reaction suggesting continued healing. There remains lack of solid bridging bony union and callus formation of the medial and lateral malleolus fractures. Large plantar enthesophyte of the calcaneus is seen. 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 Electronically signed by: Vasile Cohn MD 11/16/2020 4:23 PM [facility]
== END ==
LOC: RAD 10:02
PROVIDERS: ATTEND Orthopaedic Surgery
DX: S82.441A Displaced spiral fracture of shaft of right fibula, initial encounter for closed fracture (principal); S82.54XA Nondisplaced fracture of medial malleolus of right tibia, initial encounter for closed fracture; M77.31 Calcaneal spur, right foot; M19.071 Primary osteoarthritis, right ankle and foot

== ENCOUNTER → 2020-12-18 | Outpatient (CLI) | payer MEDICARE, OTHER ==
--- NOTE | 2020-12-19 22:46 | RAD ---
EXAM: Ankle,Right 3 Views INDICATION: 85 years Female, CLOSED BIMALLEOLAR FX OF RIGHT ANKLE COMPARISON: 3 views of the right ankle 11/16/2020 FINDINGS: 3 views of the right ankle were performed. Interval removal of a cast seen on the prior study of 11/16/2020. There has been some progressive callus formation across the minimally displaced obliquely oriented fracture of the right distal fibula. Alignment is stable from the prior study. No substantial bony callus formation at a nondisplaced medial malleolar fracture which is better appreciated on the lateral view. Diffuse osteopenia. No new fracture is identified. No joint dislocation. Moderate to severe degenerative changes in the foot. Plantar calcaneal spur noted. Improving soft tissue edema. IMPRESSION: 1. Continued interval healing at a right distal fibular fracture with stable alignment compared to the prior study of 11/16/2020. 2. No significant bony callus formation at a nondisplaced medial malleolar fracture, best seen on the lateral view. Electronically signed by: Wanda Moore MD 12/19/2020 10:44 PM [facility]
== END ==
LOC: RAD 09:39
PROVIDERS: ATTEND Orthopaedic Surgery
DX: S82.844A Nondisplaced bimalleolar fracture of right lower leg, initial encounter for closed fracture (principal)